=== PATIENT | female | born 1960 | race Caucasian/White ===

== ENCOUNTER 2021-02-28 15:26 | Observation (INO) | payer OTHER, SELFPAY ==
[2021-02-28] VITALS (37 sets, daily range): BP systolic 111–143; BP diastolic 60–75; PULSE 43–59; RESP 13–23; TEMP 36.4–37; O2SAT 97–100; BMI 28.8
--- NOTE | ~2021-02-28 | XR_ITS ---
EXAMINATION: XR chest 2V DATE: 02/28/2021 16:03 INDICATION: Chest pain. Epigastric abdominal pain. TECHNIQUE: Frontal and lateral views of the chest were obtained. COMPARISON: None. FINDINGS: There is mild scarring at the lung apices. No pleural effusion or pneumothorax. The heart s ize is normal. IMPRESSION: 1. Mild scarring at the lung apices. Reviewed, dictated and finalized at location A.
--- NOTE | 2021-02-28 15:31 | ECG_ITS ---
Measurements Intervals Shanks Rate: 52 P: 47 ID: [id number] QRS: 43 QRSD: 82 T: 58 QT: 418 QTc: 390 Interpretive Statements SINUS BRADYCARDIA BORDERLINE ECG Electronically Signed On 02-28-2021 15:37:27 CDT by Tim Velazquez D.O.
[2021-02-28 15:58] LABS: Basophils Absolute Auto 0.1 K/mm3 (0.0-0.1); Basophils Percent Auto 0.8 % (0.2-1.2); Eosinophils Absolute Auto 0.2 K/mm3 (0-0.3); Eosinophils Percent Auto 2.4 % (0-4.4); Hematocrit 39.3 % (37.0-47.0); Immature Granulocyte Absolute 0.02 K/mm3 (0.00-0.031); Immature Granulocyte Percent A 0.3 % (0-0.5); Lymphocytes Absolute Auto 3.05 K/mm3 (0.9-3.2); Lymphocytes Percent Auto 39.1 % (18.3-44.2); Mean Corpuscular HGB Conc 33.1 g/dl (32-36); Mean Corpuscular Hemoglobin 29.8 pg (26-34); Mean Corpuscular Volume 90.1 fl (80-100); Mean Platelet Volume 8.3 fl (7.4-10.4); Monocytes Absolute Auto 0.6 K/mm3 (0.1-0.6); Monocytes Percent Auto 7.6 % (2.6-8.5); Neutrophils Absolute Auto 3.9 K/mm3 (1.3-6.7); Neutrophils Percent Auto 49.8 % (45.5-73.1); Platelet Count Result 291 k/mm3 (150-375); Red Blood Count 4.36 M/mm3 (4.2-5.4); Red Cell Distribution Width 12.6 % (11.5-14.5); White Blood Count 7.8 K/mm3 (4.5-10.0)
[2021-02-28 16:10] LABS: Anion Gap 6 mmol/L (8-16); Blood Urea Nitrogen 20 mg/dL (7-17); Calcium 9.4 mg/dL (8.4-10.2); Carbon Dioxide 28 mmol/L (22-30); Chloride 101 mmol/L (98-107); Estimated CRCL calculation 59 ml/min; Estimated Glomerular Filt Rate > 60; Glucose 111 mg/dL (65-110); Potassium 4.4 mmol/L (3.4-5.0); Sodium 135 mmol/L (137-145)
[2021-02-28 16:22] LABS: Troponin I < 0.012 ng/mL (0.000-0.034)
[2021-02-28 16:53] LABS: INR 0.8; Prothrombin Time 11.5 Seconds (11.1-14.7)
[2021-02-28 16:54] LABS: Partial Thromboplastin Time 32.2 SECONDS (22.3-36.8)
[2021-02-28] MEDS: Please add drug allergy info to patient profile. 1 EACH XX (18:07)
[2021-02-28] MEDS: ASPIRIN 81 MG CHEWABLE TABLET 324 MG PO (18:07)
--- NOTE | 2021-02-28 18:34 | ED.CHESTPAIN ---
HPI - Chest Pain General Chief Complaint: Chest Pain Stated Complaint: chest pain Time Seen by Provider: 02/28/21 17:32 Source: patient Mode of arrival: ambulatory Limitations: no limitations History of Present Illness HPI narrative: 61 year old female PMH HTN seen at outside hospital for chest pain also had ECHO; given nitro extended release for home, broke out in rash this AM after taking it. Last had chest pain this morning. Per patient she was due to see program coordinator for residence life next week, Dr Mary, for possible cath but was sent here by PMD for continued chest pain. No chest pain currently at rest. Does complain of rash at lower abdomen and chest wall. No difficulty swallowing. No shortness of breath. Related Data Allergies Allergy/AdvReac Type Severity Reaction Status Date / Time cefuroxime [From Ceftin] Allergy Rash Verified 02/28/21 18:08 ciprofloxacin [From Cipro] Allergy Unknown Verified 02/28/21 18:09 codeine Allergy Unknown Verified 02/28/21 18:09 doxycycline Allergy Unknown Verified 02/28/21 18:09 hydroxyzine Allergy Unknown Verified 02/28/21 18:09 metronidazole [From Flagyl] Allergy Unknown Verified 02/28/21 18:09 prednisone Allergy Unknown Verified 02/28/21 18:09 Sulfa (Sulfonamide Allergy Unknown Verified 02/28/21 18:09 Antibiotics) Review of Systems Review of Systems: CONSTITUTIONAL: no fever, no weight loss, no confusion EYES: no vision changes, no eye pain ENT: no rhinorrhea, no sore throat, no difficulty swallowing CARDIOVASCULAR: chest pain, no leg edema, no palpitations RESPIRATORY: no cough, no shortness of breath, no hemoptysis GASTROINTESTINAL: no abdominal pain, no nausea, no vomiting, no diarrhea GENITOURINARY: no flank pain, no dysuria, no hematuria SKIN: macular rash, no jaundice MUSCULOSKELETAL: no back pain, no trauma. NEUROLOGIC: No headache, no dizziness, no focal weakness, does have lightheadedness PSYCHIATRIC: No hallucinations, no suicidal ideation Exam Narrative: General: alert, afebrile, answering all questions appropriately Head: normocephalic, atraumatic Eyes: EOMI bilaterally, anicteric, no injection ENT: moist mucous membranes, oropharynx patent, no rhinorrhea Neck: supple, trachea midline, no JVD Chest: equal chest rise bilaterally, no chest wall trauma noted Lungs: clear to auscultation bilaterally, respirations unlabored CV: regular rate, no RIMA B, calf size equal bilaterally Abd: soft, non-distended, non-tender, no rebound, no gaurding EXT: no deformity noted, moving all extremities equally Skin: warm, dry, no pallor, macular rash lower abdomen, anterior chest wall Neuro: alert, oriented x 3; CN 2-12 grossly intact, no dysarthria Psych: affect appropriate, though content normal Course Course Emergency Course: Patient to be admitted chest pain obs; no chest pain currently sinus bradycardia with frequent PACs Consultations Date: 02/28/21 Time: 18:40 Consultation #2: With Dr. Mary who states he does not yet know the patient's history only what is heard through the primary doctor and does not have access to the echo currently. He states to admit patient chest pain knobs. Spoke to Patrizia the [place] for hospitalist who agrees with plan. Vital Signs Vital signs: Vital Signs Temperature 36.4 C 02/28/21 15:40 Pulse Rate 58 L 02/28/21 15:40 Respiratory Rate 14 02/28/21 15:40 Blood Pressure 124/64 02/28/21 15:40 Pulse Oximetry 99 02/28/21 15:40 Temperature 37.0 C 02/28/21 17:47 Pulse Rate 43 L 02/28/21 17:47 Respiratory Rate 16 02/28/21 17:47 Blood Pressure 111/66 02/28/21 17:47 Pulse Oximetry 100 02/28/21 17:47 MDM - Chest Pain MDM Narrative Medical decision making narrative: Patient recently seen at outside hospital with echo discharged on nitro with intermittent chest pain since discharge supposed to follow-up with Dr. Mary. Patient sent to ED for cardiology referral and possible cath by PMD. Patient arrives no chest pain currently does
[2021-02-28 19:19] LABS: Troponin I < 0.012 ng/mL (0.000-0.034)
[2021-02-28] MEDS: SODIUM CHLORIDE 0.9% IV 1,000 ML 999 ML IV CONT (19:38)
--- NOTE | 2021-02-28 21:53 | PM.IMHP ---
H&P: HPI History of Present Illness Date/Time: 02/28/21 21:53 Chief Complaint: chest pain Narrative: 61 year old female PMH HTN and hyperlipidemia seen about a week ago with chest pain which was mid sternal in radiate to his left arm and had soreness in her upper arm and shoulder. She was given nitroglycerin sublingual which relieved most of this pains and shortness. She also reports at 1 point she had epigastric pain. She had an echocardiogram done in the ER which is not available for us to review was given extended release nitro for home and was sent home to see cardiology notes of as an outpatient basis. She took the extended-release nitro but broke out in rash 1st started taking it in and see stopped. She continued to have chest pain intermittently and went acute doctor who suggested her to go to the ER of the consultation with Dr. Chavarria. She currently denies any chest pain. She denies any nausea vomiting sweating or shortness of breath associated with chest pain. No other complaints Review of Systems Review of Systems: - CONSTITUTIONAL: Denies weight loss, fever and chills. - HEENT: Denies changes in vision and hearing - RESPIRATORY: Denies SOB and cough. - CV: Denies palpitations and reports CP. - GI: Denies abdominal pain, nausea, vomiting and diarrhea. - : Denies dysuria and urinary frequency. - MSK: Denies myalgia and joint pain. - SKIN: Denies rash and pruritus. - NEUROLOGICAL: Denies headache and syncope. - PSYCHIATRIC: Denies recent changes in mood. Denies anxiety and depression. All systems reviewed & are unremarkable except as noted in HPI and below Constitutional: Constitutional: Reports fatigue and Reports weakness Neurologic: Reports weakness Endocrine: Endocrine: Reports fatigue Meds Home Medications and Allergies Allergies Allergy/AdvReac Type Severity Reaction Status Date / Time cefuroxime [From Ceftin] Allergy Rash Verified 02/28/21 18:08 ciprofloxacin [From Cipro] Allergy Unknown Verified 02/28/21 18:09 codeine Allergy Unknown Verified 02/28/21 18:09 doxycycline Allergy Unknown Verified 02/28/21 18:09 hydroxyzine Allergy Unknown Verified 02/28/21 18:09 metronidazole [From Flagyl] Allergy Unknown Verified 02/28/21 18:09 prednisone Allergy Unknown Verified 02/28/21 18:09 Sulfa (Sulfonamide Allergy Unknown Verified 02/28/21 18:09 Antibiotics) Vital Signs Vital Signs - 24 hr 02/28/21 15:40 02/28/21 17:41 02/28/21 17:42 Temperature 97.6 F Pulse Rate 58 L Respiratory Rate 14 Blood Pressure 124/64 114/75 Pulse Oximetry 99 99 98 02/28/21 17:45 02/28/21 17:46 02/28/21 17:47 Temperature 98.6 F Pulse Rate 43 L Respiratory Rate 19 20 16 Blood Pressure 111/66 111/66 Pulse Oximetry 100 100 100 02/28/21 18:00 02/28/21 18:01 02/28/21 18:15 Temperature Pulse Rate 59 L 49 L Respiratory Rate Blood Pressure Pulse Oximetry 100 100 97 02/28/21 18:16 02/28/21 18:30 02/28/21 18:31 Temperature Pulse Rate 49 L 47 L Respiratory Rate 20 13 Blood Pressure 112/63 127/66 Pulse Oximetry 97 100 100 02/28/21 18:45 02/28/21 18:46 02/28/21 19:00 Temperature Pulse Rate 47 L Respiratory Rate 14 20 19 Blood Pressure 123/72 Pulse Oximetry 100 99 99 02/28/21 19:01 02/28/21 19:15 02/28/21 19:16 Temperature Pulse Rate 53 L 51 L Respiratory Rate 23 H 19 14 Blood Pressure 125/65 Pulse Oximetry 98 100 100 02/28/21 19:30 02/28/21 19:32 Temperature Pulse Rate Respiratory Rate 20 21 H Blood Pressure 123/72 Pulse Oximetry 100 99 Exam Narrative: General: alert, afebrile not in acute distress Head: normocephalic, atraumatic Eyes: EOMI bilaterally, anicteric, no injection ENT: moist mucous membranes, oropharynx patent, no rhinorrhea Neck: supple, trachea midline, no JVD Chest: Equal air entry bilaterally no chest wall trauma noted Lungs: clear to auscultation bilaterally, respirations unlabored CV: Bradycar
[2021-02-28 22:11] LABS: Troponin I < 0.012 ng/mL (0.000-0.034)
[2021-02-28 22:27] LABS: Cholesterol 301 mg/dL (0-200); HDL Direct 56 mg/dL; Triglycerides 141 mg/dL (<150)
[2021-02-28 22:38] LABS: LDL Cholesterol Direct 168 mg/dL
--- NOTE | 2021-02-28 23:39 | ADMGEN ---
This patient, Gabriella Vyas, was admitted to IMU Room 206-01. Patient/family oriented to hospital policies and general routines including ID bracelet, bed and alarms, visiting hours, pain management, procedures, bathroom and other care routines, personal items, smoking policy, room service/diet, and visiting hours. Information on how to activate the Rapid Response Team has been discussed. Patient/Family are encouraged to report perceived risks to care and to ask questions if they do not understand what they are told or what they should do. latasha staples
[2021-02-28] MEDS: ATORVASTATIN 40 MG TABLET PO (23:46)
[2021-03-01] VITALS (19 sets, daily range): BP systolic 117–142; BP diastolic 52–74; PULSE 37–54; RESP 15–20; TEMP 36.1–36.5; O2SAT 97–100
[2021-03-01] MEDS: ASPIRIN 81 MG ENTERIC TABLET PO (09:16)
--- NOTE | 2021-03-01 09:23 | PM.CNCAR ---
Assessment and Plan Assessment and plan (1) Chest pain: Code(s): R07.9 - Chest pain, unspecified Status: Acute Assessment and Plan: Her chest pain that occurred last week that sent her to the emergency department is more worrisome for unstable angina. It was nitrate responsive and she did have some associated symptoms down her left arm. She has had some other symptoms since that time which are much more atypical. She is intolerant isosorbide and she is bradycardic and cannot be put on a beta-moustapha at this point. Because of her symptoms that are consistent with unstable angina last week and intolerance other medications, I think it is reasonable to pursue a coronary angiogram to define her coronary anatomy. Will keep her NPO. Aspirin 81 mg p.o. daily to be started. She has an allergy to statins and and so her statin will be stopped and as an outpatient she will be put on a PCSK9 inhibitor in the form of Repatha pending insurance approval. (2) Hypertension: Code(s): I10 - Essential (primary) hypertension Status: Acute Assessment and Plan: Continue lisinopril. Avoid beta-moustapha because of bradycardia (3) Sinus bradycardia: Code(s): R00.1 - Bradycardia, unspecified Status: Acute Assessment and Plan: Will check a TSH and free T4 level. (4) Hyperlipidemia: Code(s): E78.5 - Hyperlipidemia, unspecified Status: Acute Assessment and Plan: Repatha to be started as an outpatient (5) Tobacco abuse: Code(s): Z72.0 - Tobacco use Status: Acute Assessment and Plan: Recently quit (6) Family history of premature CAD: Code(s): Z82.49 - Family history of ischemic heart disease and other diseases of the circulatory system Status: Acute History of Present Illness History of Present Illness Consult date/time: 03/01/21 09:23 Requesting physician: Arlene Lloyd MD Consult reason: chest pain Reason For Visit: chest pain Narrative: Date of service 03/01/2021 Reason consultation: Chest pain Requesting provider: Dr. Lloyd History: Patient is a 61-year-old female who has high blood pressure hyperlipidemia who presented to [facility] last week with chest pressure. Chest pressure and was noted whenever she woke up and it did radiate into the upper back. She did go to work dull but after walking into her place of employment she had some numbness and tingling in her left arm. She decided to go to the emergency room where she was provided with nitroglycerin sublingually. She was given 3 doses of sublingual nitroglycerin and each dose did gradually improve her symptoms. She was nauseated but had no shortness of breath at that time. She was kept overnight for observation purposes. Her troponins were reportedly negative and echocardiogram were unremarkable but details of this are not known at this point. EKG was also reportedly okay. She was discharged home with isosorbide mononitrate which she had been taking over the past several days but then developed a rash. Prior to this episode of chest pressure she has been having some intermittent shoulder blade pain over the past several months. Initially started with some left shoulder pain that was worsened by movement. It then went into her left shoulder blade and then the right shoulder blade. Though symptoms were constantly there. those symptoms were different than the chest pressure that is aforementioned. Over the past several days she still has not been feeling very well. She has had different pains in her chest on the left side and right side that has been sharp but again a bit different and the in quality and location than what she described a couple of days ago. Yesterday she had symptoms that settled into her epigastric area and had some epigastric soreness. She went to her primary care provider who became quite concerned about her overall symptomatology and after discussions
--- NOTE | 2021-03-01 10:35 | PC.NURSE ---
Patient to cardiac bolt labeler via stretcher.
--- NOTE | 2021-03-01 11:29 | WPDHPUPDATE1 ---
History and Physical Update Update Date/Time: 03/01/21 11:29 History and Physical has been reviewed, including an updated exam of the patient. There are NO changes in the patient's condition. Risks, benefits, and alternatives have been discussed and questions answered. Patient agrees to proceed with procedure.
--- NOTE | 2021-03-01 11:29 | WPDMODSED ---
Moderate Sedation Note-Pt Data Patient Data Allergies Allergy/AdvReac Type Severity Reaction Status Date / Time cefuroxime [From Ceftin] Allergy Rash Verified 02/28/21 18:08 ciprofloxacin [From Cipro] Allergy Unknown Verified 02/28/21 18:09 codeine Allergy Unknown Verified 02/28/21 18:09 doxycycline Allergy Unknown Verified 02/28/21 18:09 hydroxyzine Allergy Unknown Verified 02/28/21 18:09 isosorbide Allergy Rash Verified 03/01/21 07:18 metronidazole [From Flagyl] Allergy Unknown Verified 02/28/21 18:09 prednisone Allergy Unknown Verified 02/28/21 18:09 Sulfa (Sulfonamide Allergy Unknown Verified 02/28/21 18:09 Antibiotics) Home Medications Medication Instructions Recorded Confirmed Type lisinopril 20 mg PO DAILY 02/28/21 02/28/21 History Current Medications: Active Medications Aspirin (Aspirin 81 Mg Enteric Tablet) [address] [facility] Last Admin: 03/01/21 09:16 Dose: 81 mg Documented by: Atorvastatin Calcium (Atorvastatin 40 Mg Tablet) 40 mg PO [facility] Last Admin: 02/28/21 23:46 Dose: 40 mg Documented by: Nitroglycerin (Nitroglycerin Sl 0.4 Mg Tablet) 0.4 mg SUBLINGUAL Q5MIN PRN PRN Reason: Chest Pain Sedation/Anesthesia: No previous sedation/anesthesia problems (including family history). [facility] Past Medical History Medical History Hyperlipidemia Hypertension Tobacco abuse Family History Family History Father Diabetes mellitus Sibling Malignant neoplasm of prostate Heart attack Breast cancer Grandparent Heart attack Social History Social History Smoking packs per day: 30 Smoking cigarettes per day: 600.0 Years smoked: 0.5 Smoking pack-years: 15.00 Smoking status: Former smoker Tobacco type: cigarettes Second hand tobacco smoke exposure: No Alcohol intake: never Substance use: never Spiritual care concerns: No Mod Sed Physical Exam Physical Exam Pre Procedural Exam: Normal: Appearance, Eyes, Ears, Nose, Neck, Throat, Airway, Lungs, Heart Size, Heart Rate, Heart Rhythm, Neuro Exam, Abdomen, Liver, Kidneys, Spleen, Breasts, Genitalia, Extremities and Skin Hours since solid foods: 8 Hours since liquid intake: 8 Mallampati Classification: class 1 Internal Medicine - PN: Obj Da Vital Signs Vital Signs: Vital Signs - 24 hr 02/28/21 15:40 02/28/21 17:41 02/28/21 17:42 Temperature 36.4 C Pulse Rate 58 L Respiratory Rate 14 Blood Pressure 124/64 114/75 Pulse Oximetry 99 99 98 02/28/21 17:45 02/28/21 17:46 02/28/21 17:47 Temperature 37.0 C Pulse Rate 43 L Respiratory Rate 19 20 16 Blood Pressure 111/66 111/66 Pulse Oximetry 100 100 100 02/28/21 18:00 02/28/21 18:01 02/28/21 18:15 Temperature Pulse Rate 59 L 49 L Respiratory Rate Blood Pressure Pulse Oximetry 100 100 97 02/28/21 18:16 02/28/21 18:30 02/28/21 18:31 Temperature Pulse Rate 49 L 47 L Respiratory Rate 20 13 Blood Pressure 112/63 127/66 Pulse Oximetry 97 100 100 02/28/21 18:45 02/28/21 18:46 02/28/21 19:00 Temperature Pulse Rate 47 L Respiratory Rate 14 20 19 Blood Pressure 123/72 Pulse Oximetry 100 99 99 02/28/21 19:01 02/28/21 19:15 02/28/21 19:16 Temperature Pulse Rate 53 L 51 L Respiratory Rate 23 H 19 14 Blood Pressure 125/65 Pulse Oximetry 98 100 100 02/28/21 19:30 02/28/21 19:32 02/28/21 19:33 Temperature Pulse Rate Respiratory Rate 20 21 H 20 Blood Pressure 123/72 Pulse Oximetry 100 99 99 02/28/21 19:45 02/28/21 19:46 02/28/21 20:00 Temperature Pulse Rate 46 L 47 L 48 L Respiratory Rate 20 19 16 Blood Pressure 143/69 H Pulse Oximetry 100 100 02/28/21 20:30 02/28/21 21:00 02/28/21 21:15 Temperature Pulse Rate 52 L Respiratory Rate 17 13 19 Blood Pressure Pulse Oximetry 02/28/21 21:30
--- NOTE | 2021-03-01 11:29 | WPDCARDPROC ---
Cardiac Cath Procedure Note Date of procedure:: 03/01/21 Performing physician:: Sydney Patiño MD Date of service 03/01/2021 Indication:: chest pain Brief clinical history:: this 61-year-old lady with past history of smoking, hypertension and family history of premature CAD presents with chest pain. Due to multiple risk factors we decided to bring her here to catheter builder to rule out CAD as possible etiology for chest pain. Procedure Procedure performed:: 1-Moderate sedation that started at 10:59 a.m. and ended at 11:23 a.m. total duration 24 minutes using 2mg of Versed and 25mcg fentanyl. The registered nurse was Jackie Robledo. 2-Selective left and right coronary angiogram. 3-Left heart catheterization with measurement of LVEDP and measurement of gradient across aortic valve. 4- LV angiogram. 4-Right common femoral arterial angiogram. 5-Deployment of 6 [place] Angio-Seal. Sedation/Medication given:: Moderate sedation. Access site:: Right common femoral artery. Estimated blood loss:: 10cc Procedure note:: After informed consent patient was brought in to catheter builder with the was draped and prepped in usual manner. Moderate sedation was given and the right groin was infiltrated using 1% lidocaine. Five [place] sheath was obtained using micropuncture needle and the modified Seldinger technique. Selective left coronary angiogram was done using JL4 catheter with the tip of the catheter placed in the left main coronary artery. Selective right coronary angiogram was done using JR4 catheter with the tip of the catheter placed to the right coronary artery. After that 5 [place] pigtail catheter was advanced across the aortic valve into the left ventricle with measurement of LVEDP and measurement of gradient across aortic valve. is LV angiogram was done as well. Right common femoral arterial angiogram was done. Findings:: 1- left coronary artery is a large artery that divides into large LAD, large circumflex arter Medium size ramus intermediusy. Left main is free of disease. 2- left anterior descending artery is a large artery that runs and wraps around the apex. Free of disease. Large diagonal branch proximally. Medium size diagonal branch in mid segment free of disease. 3- leftcircumflex artery is a large artery And codominant has minimal irregularities proximally. Otherwise free of disease. 4- right coronary artery is Medium in size and codominant and free of disease. 5- LVEDP was 15 mm mercury and no gradient across aortic valve. 6- opening arterial pressure was 1 and 17/80and closing pressure was 110/70 7- LV angiogram shows normal LV systolic function with no wall motion abnormalities estimated ejection fraction 70%. Normal ascending aorta. 7- right femoral artery angiogram shows no significant disease in the right common femoral artery. Conclusion:: Minimal irregularities in the left circumflex artery otherwise no CAD. Assessment and Plan Additional Plan Continue risk factor modification for CAD. Tobacco cessation.
--- NOTE | 2021-03-01 11:40 | SUR.PHASEII ---
RETURNS TO STUDIO POTTER 4 S/P [facility] W/ DR. BAUGH. AWAKE AND ALERT. DENIES CP OR SOB. ANGIOSEAL CLOSURE TO R. GROIN PUNCTURE SITE; GAUZE AND TEGADERM DRESSING C/D/I. IVF'S RUNNING ORDERED UPON ARRIVAL. R. PEDAL PULSE PALP WEAK. MONITOR SB. REVIEWED BEDREST ACTIVITY RESTRICTIONS AND LENGTH OF BEDREST. REVIEWED MONITORING AND CARE OF R. GROIN PUNCTURE SITE POST BEDREST AND FOR DISCHARGE. VOICED UNDERSTANDING. WILL CONTINUE TO MONITOR.
[2021-03-01 11:46] LABS: T4 Thyroxine 8.77 ug/dL (5.53-11.0)
--- NOTE | 2021-03-01 12:30 | SUR.PHASEII ---
TO REMAIN IN ROLL UP HELPER 4 IMU OVERFLOW POST LHC AND PHASE II RECOVERY. DISCHARGE HOME IS PLANNED FOR TODAY FROM CARDIAC [facility]ANDPOINT. DR. CARTWRIGHT HAS BEEN HERE TO SEE PT AT BEDSIDE AT 1215.
--- NOTE | 2021-03-01 12:45 | SUR.PHASEII ---
PATRICIA Sarmiento TUFTER OPERATOR HERE TO BEDSIDE TO SEE PT. CONDITION UPDATE GIVEN.
--- NOTE | 2021-03-01 13:04 | PC.NURSE ---
Report given to BRISA Woods. Patient transferring to [facility].
--- NOTE | 2021-03-01 13:50 | SUR.PHASEII ---
BEDREST X 2 HOURS COMPLETED. UP TO VOID IN BATHROOM. WHILE UP IN BATHROOM, PT. NOTED FINE TRICKLE OF BLOOD FROM R. GROIN PUNCTURE SITE DOWN LEG. RETURNED TO BED FOR EVALUATION. PUNCTURE SITE NOT ACTIVELY BLEEDING ON ASSESSMENT, BUT SMALL SOFT HEMATOMA NOTED AND INCREASED TENDERNESS TO SITE. VSS. NO CHANGE IN R. PEDAL PULSE. WILL HOLD MANUAL PRESSURE TO SITE TO STOP OOZE AND PRESS OUT HEMATOMA. AIDA MENDOZA NP UPDATED BY CONSTANZA STARKS RN OF SITUATION.
--- NOTE | 2021-03-01 14:10 | SUR.PHASEII ---
FULL 10 MINUTES OF MANUAL PRESSURE HELD TO R. GROIN PUNCTURE SITE AND SMALL HEMATOMA. HEMATOMA RESOLVED, SITE SOFT. NO FURTHER OOZE OR BLEEDING NOTED FROM PUNCTURE SITE. SITE DRESSED W/ STAT SEAL AND TEGADERM. RESUMED BEDREST AT THIS TIME UNTIL SEEN BY AIDA MENDOZA NP. PT. REPORTS ONLY MILD TENDERNESS TO SITE. WILL CONTINUE TO MONITOR. R. PEDAL PULSE CONTINUES TO PALP WEAK.
--- NOTE | 2021-03-01 14:20 | SUR.PHASEII ---
AIDA MENDOZA MIXING AND DISPENSING SUPERVISOR HERE TO SEE PT AND EVALUATE R. GROIN SITE. WILL KEEP ON BEDREST UNTIL 1500, THEN UP. CONTINUE DISCHARGE PLAN TO HOME BEFORE IF R. GROIN SITE REMAINS STABLE.
--- NOTE | 2021-03-01 14:28 | PM.EVENT ---
Event Note Event Note Event Note: Notified by RN that patient has some bleeding from her right groin left heart catheterization site following her bed rest. This occurred when she got up to use the bathroom. Patient was returned to bed and pressure was held on the site for 10 minutes. I personally assessed and examined the patient at bedside. Site is now free from any bleeding. There is a very small hematoma lateral to the Angio sealed site. No bruit, no ecchymosis. Patient to remain on bedrest for an additional 30 minutes from now (total of 1 extra hour). Patient to ambulate before she is discharged to ensure there is not recurrence of bleeding.
--- NOTE | 2021-03-01 15:00 | SUR.PHASEII ---
BEDREST COMPLETE. UP IN ROOM. STEADY. NO CHANGE IN R. GROIN SITE. REMAINS SOFT, AND WITHOUT OOZE OR HEMATOMA.
[2021-03-01] MEDS: lisinopriL 20 MG TABLET PO (15:20)
--- NOTE | 2021-03-01 16:00 | SUR.PHASEII ---
NO FURTHER CHANGE IN R. GROIN SITE. HAS REMAINED STABLE. NO OOZE OR BLEEDING. NO HEMATOMA. DRESSING C/D/I. DRESSED FOR DISCHARGE HOME. DISCHARGE INSTRUCTIONS REVIEWED W/ PT. BY CONSTANZA STARKS RN. QUESTIONS ANSWERED. VOICED UNDERSTANDING OF ALL. AWAIT RIDE HOME FROM DAUGHTER.
--- NOTE | 2021-03-01 16:10 | SUR.PHASEII ---
DISCHARGED HOME, OUT VIA WC TO DAUGHTER'S WAITING CAR, WITH ALL PERSONAL BELONGINGS AND DISCHARGE PACKET. NO NEW CHANGES NOTED. VOICES NO C/O. NO DISTRESS NOTED.
--- NOTE | 2021-03-05 15:54 | PM.DS ---
DS: Admitting Diagnosis Discharge Date 03/01/21 Admitting Diagnosis chest pain DS: Discharge Diagnosis Discharge Diagnosis (1) Chest pain: Code(s): R07.9 - Chest pain, unspecified Status: Acute (2) Hypertension: Code(s): I10 - Essential (primary) hypertension Status: Acute (3) Sinus bradycardia: Code(s): R00.1 - Bradycardia, unspecified Status: Acute (4) Hyperlipidemia: Code(s): E78.5 - Hyperlipidemia, unspecified Status: Acute (5) Statin intolerance: Code(s): Z78.9 - Other specified health status Status: Acute DS: Summary Hospital Course Hospital Course: 61 year old female PMH HTN and hyperlipidemia seen about a week ago with chest pain which was mid sternal in radiate to his left arm and had soreness in her upper arm and shoulder. She was given nitroglycerin sublingual which relieved most of this pain and shortness of breath. She also reported at 1 point she had epigastric pain. She had an echocardiogram done in the ER which is not available for us to review was given extended release nitro for home and was sent home to see cardiology on an outpatient basis. She took the extended-release nitro but broke out in rash 1st started taking it in and see stopped. She continued to have chest pain intermittently and went acute doctor who suggested her to go to the ER of the consultation with Dr. Chavarria. She underwent cardiac LHC which showed no CAD. She is hemodynamically stable and discharge home today. She has been advised to follow up with her PCP. Time Spent with Patient Time attestation: Total time spent providing and/or coordinating discharge services: Time spent: Greater than 30 minutes Exam Narrative: General: aox3, no acute distress Head: normocephalic, atraumatic Eyes: EOMI bilaterally, anicteric, no injection ENT: moist mucous membranes, oropharynx patent, no rhinorrhea Neck: supple, trachea midline, no JVD Lungs: clear to auscultation bilaterally, respirations unlabored CV: s1, s2 +2 peripheral pulses throughout Abd: soft, non-distended, non-tender, no rebound, no guarding EXT: left groin cath site dressing intact. no deformity noted, moving all extremities equally Skin: warm, dry, no pallor, macular rash lower abdomen, anterior chest wall Neuro: alert, oriented x 3; no focal deficits Discharge Plan Discharge Attending physician on discharge: Lilly Vincent Consulting providers: Saran Mary ; Sydney Patiño ; Tim Velazquez ; Kallie Caballero ; Kelvin Banks V. ; Bernardo Youngblood Discharging Clinician: Aneta Villafuerte Patient Disposition: Home, Self-Care Activity: other - see discharge instructions Diet: heart healthy Wound Care Instructions: other - see discharge instructions Discharge Instructions: [facility] [address] [place] [address] DISCHARGE INSTRUCTIONS - POST CARDIAC CATH Activity restrictions 1. No driving for 24 hours. 2. No lifting, pushing or pulling more than 10 pounds for 1 week. 3. No strenuous exercise or activity (including sexual activity) for 1 week. 4. May shower but no tub baths or swimming pool for 1 week. Avoid commercial hot tubs. Wound care 1. May remove gauze dressing tomorrow and place Band aid over site. 2. Remove Band aid on 03/03/21 and leave site open to air. 3. Observe for redness, swelling, drai
== END 2021-03-01 16:10 | disposition home or self-care (01) ==
LOC: ANHED 18:09 → ANHIMU 20:42 → ANHCPC 03-01 12:38
PROVIDERS: Emergency Medicine; Internal Medicine; Internal Medicine Cardiovascular Disease; Admitting Provider Family Medicine; Emergency Provider Emergency Medicine; PCP Family Medicine; Visit Provider Family Medicine
PROC: 4A023N7 Measurement of Cardiac Sampling and Pressure, Left Heart, Percutaneous Approach (ICD-10-PCS; CPT 93452; principal; 2021-03-01 10:30)
DX: R07.9 Chest pain, unspecified (principal); I97.630 Postprocedural hematoma of a circulatory system organ or structure following a cardiac catheterization; I10 Essential (primary) hypertension; R00.1 Bradycardia, unspecified; E78.5 Hyperlipidemia, unspecified; Z87.891 Personal history of nicotine dependence
CPT/HCPCS: 36415; 71046; 80048; 80061; 84436; 84443; 84484; 85025; 85610; 85730; 93005; 93458; 96360; 96361; 99285; A9270; C1760; C1887; C1894; G0269; G0378; J1644; J2250; J3010; J7030; J7040